=== PATIENT | female | born 1950 | race Two or more races ===

== ENCOUNTER → 2017-08-24 | Outpatient (CLI) | payer MEDICARE, MEDICAID ==
[~2017-08-24] MED LIST: ATOR40TA PO; CARV-39 PO; GABA300C10 PO; HYDR25TA11 PO; LOSA50TA2 PO; METF500T27 PO; METF500T4 PO
== END | disposition home or self-care (01) ==
LOC: CFH 08:33
PROVIDERS: ATTEND Internal Medicine Cardiovascular Disease
DX: I08.0 Rheumatic disorders of both mitral and aortic valves (principal); I50.22 Chronic systolic (congestive) heart failure
CPT/HCPCS: 93306

== ENCOUNTER → 2018-07-26 | Outpatient (CLI) | payer MEDICARE, MEDICAID ==
[~2018-07-26] MED LIST changes: +METF500T17 PO; -METF500T4 PO
[2018-07-26 12:51] LABS: CHLORIDE 101 mmol/L (98-107)
[2018-07-26 13:02] LABS: ALANINE AMINOTRANSFERASE 32 U/L (12-78); ALBUMIN 3.9 g/dL (3.4-5.0); ALKALINE PHOSPHATASE 81 U/L (45-117); ANION GAP 6 mmol/L (5-15); BILIRUBIN,TOTAL 0.5 mg/dL (0.2-1.0); CALCIUM 9.3 mg/dL (8.5-10.1); CHOLESTEROL, TOTAL 248 mg/dL (140-239); CREATININE 1.05 mg/dL (0.55-1.02); HDL CHOL % 20 % (28-40); HDL CHOLESTEROL (DIRECT) 50 mg/dL (40-60); LDL CHOLESTEROL,CALCULATED 176 mg/dL (54-169); LDL/HDL RATIO 3.5 (0.5-3.0); TOTAL PROTEIN 8.6 g/dL (6.4-8.2); TRIGLYCERIDES 112 mg/dL (50-200); VLDL CHOLESTEROL 22 mg/dL (0-25)
== END | disposition home or self-care (01) ==
LOC: CFH 09:25
PROVIDERS: ATTEND Internal Medicine
DX: I10 Essential (primary) hypertension (principal); E78.2 Mixed hyperlipidemia
CPT/HCPCS: 36415; 80053; 80061

== ENCOUNTER 2019-08-02 08:36 | Outpatient (CLI) | payer MEDICARE, MEDICAID ==
[~2019-08-02 08:36] MED LIST changes: +HYDR-826 PO; -HYDR25TA11 PO
== END 2019-08-02 23:59 | disposition home or self-care (01) ==
LOC: CFH 08:36
PROVIDERS: ATTEND Internal Medicine Cardiovascular Disease
DX: I08.3 Combined rheumatic disorders of mitral, aortic and tricuspid valves (principal); I50.9 Heart failure, unspecified
CPT/HCPCS: 93306